=== PATIENT | female | born 1995 | race Caucasian/White ===

== ENCOUNTER → 2018-07-28 09:24 | Outpatient (CLI) | payer OTHER, SELFPAY ==
[2018-07-28 10:05] LABS: Absolute Neutrophil Count 5.3 X10^3/uL (2.0-7.7); Basophil# 0.04 X10^3/uL; Basophil% 0.5 % (0-1); Eosinophil# 0.17 X10^3/uL; Hematocrit 42.7 % (37-47); Hemoglobin 14.1 g/dl (12.0-15.0); Lymphocyte % 28.6 % (19-41); Mean Corpuscular Hgb 27.3 pg (27.0-32.0); Mean Corpuscular Volume 82.8 fL (81-99); Mean Platelet Vol. 9.4 fl (6.2-12.0); Monocyte# 0.53 X10^3/uL; Monocyte% 6.3 % (0-10); Neutrophil # 5.25 X10^3/uL (2.7-7.7); Neutrophil % 62.5 % (47-70); POSITIVE COUNT NO; POSITIVE DIFFERENTIAL NO; POSITIVE MORPHOLOGY NO; Platelet Count 360 K/mm3 (150-450); RBC Distribution Width CV 13.3 % (11.6-14.6); RBC Distribution Width SD 40.5 fl (35.1-43.9); Red Blood Count 5.16 M/mm3 (4.2-5.4); White Blood Count 8.4 K/mm3 (4.4-11.0)
[2018-07-28 10:46] LABS: Vitamin B12 1051 pg/mL (211-911)
[2018-07-28 10:48] LABS: ALB/GLOB Ratio 1.3 RATIO (0.9-2.4); AST(SGOT) 19 U/L (15-37); Alanine Aminotransfer ALT/SGPT 25 U/L (13-56); Albumin, Serum 4.2 g/dL (3.2-5.0); Alkaline Phosphatase 70 U/L (45-117); Anion Gap 7 (5-15); BUN 14 mg/dL (7-18); BUN/Creat Ratio 14.5 RATIO (10-20); Calcium,Total 8.9 mg/dL (8.5-10.1); Chloride 105 mmol/L (98-107); Cholesterol 195 mg/dL (200); Creatinine, Serum 0.97 mg/dL (0.55-1.02); EST Glomerular Filtration Rate 75 mL/min (>60); Est Glom Filt Rate - Afr Amer 90 mL/min (>60); Globulin 3.3 g/dL (2.2-4.2); Glucose 86 mg/dL (74-106); High Density Lipoprotein 58 mg/dL; Potassium 4.2 mmol/L (3.5-5.1); Protein, Total 7.5 g/dL (6.4-8.2); Sodium Level 140 mmol/L (136-145); Thyroid Stim Hormone (TSH) 1.98 uIU/mL (0.358-3.74); Triglycerides 125 mg/dL; Very Low Density Lipoprotein 25 mg/dL (5-40)
== END ==
PROVIDERS: Family Provider Family Medicine; PCP Family Medicine; Referring Provider Family Medicine; Visit Provider Family Medicine
DX: R51 Headache (principal); E53.8 Deficiency of other specified B group vitamins; Z68.34 Body mass index [BMI] 34.0-34.9, adult
CPT/HCPCS: 36415; 80053; 80061; 82607; 82746; 84443; 85025

== ENCOUNTER → 2018-12-24 12:03 | Outpatient (CLI) | payer OTHER, BC, SELFPAY ==
[2018-12-24 13:18] LABS: Vitamin B12 1853 pg/mL (211-911)
== END ==
PROVIDERS: Family Provider Family Medicine; PCP Family Medicine; Referring Provider Family Medicine; Visit Provider Family Medicine
DX: E53.8 Deficiency of other specified B group vitamins (principal)
CPT/HCPCS: 36415; 82607; 82746

== ENCOUNTER → 2019-03-17 06:41 | Outpatient (CLI) | payer OTHER, BC, SELFPAY ==
--- NOTE | 2019-03-17 06:42 | CT_ITS ---
STUDY: CT ABDOMEN AND PELVIS WITH AND WITHOUT CONTRAST REASON FOR EXAM: Female, 23 years old. Microhematuria. RADIATION DOSAGE (If Supplied By Facility): CTDIvol = ( 20.30 ) mGy, DLP = ( 3216.68 ) mGycm TECHNIQUE: Transaxial images were obtained from the dome of the diaphragm to the symphysis pubis without oral contrast. IV Isovue 370 100cc was administered. Sagittal and coronal images were reconstructed. Individualized dose optimization techniques were used for this CT. COMPARISON: None. FINDINGS: The visualized lung bases are unremarkable. The visualized portions of the heart are within normal limits. Normal liver. Normal gallbladder and extrahepatic biliary system. Normal spleen. Normal pancreas. Normal bilateral adrenal glands. Normal right kidney. Normal left kidney. Normal visualized stomach. Normal small intestine. Moderate fecal debris within the colon noted. There is non-visualization of the appendix. Normal abdominal aorta. Normal inferior vena cava. Normal retroperitoneum. Normal urinary bladder. The uterus is anteverted. The remainder of the pelvis structures are normal. There is a right-sided collapsing corpus luteum cyst measuring 1.4 cm. There is trace amount of fluid surrounding the right adnexa. Normal abdominal wall. Normal osseous structures. CT/CT Abd/Pelvis W/WO Contrast IMPRESSION: No intrarenal stone, mass or hydronephrosis. No bladder calculus or bladder mass visualized. Moderate to abundant fecal debris which may indicate mild constipation, clinical correlation recommended. No bowel obstruction. Electronically Signed: Jaylene Alvarado MD at 7:58 EST , Service support ,
== END ==
PROVIDERS: Family Provider Family Medicine; PCP Family Medicine; Referring Provider Urology; Visit Provider Urology
DX: R31.9 Hematuria, unspecified (principal)
CPT/HCPCS: 74178; Q9967

== ENCOUNTER → 2019-09-09 15:55 | Outpatient (CLI) | payer OTHER, SELFPAY ==
[2019-06-10 12:30] VITALS: BMI 33.7
[2019-09-09 17:42] LABS: Vitamin B12 645 pg/mL (211-911)
== END ==
PROVIDERS: PCP Family Medicine; Referring Provider Family Medicine; Visit Provider Family Medicine
DX: G43.909 Migraine, unspecified, not intractable, without status migrainosus (principal); E53.8 Deficiency of other specified B group vitamins
CPT/HCPCS: 36415; 82607

== ENCOUNTER → 2020-02-06 | Outpatient (CLI) | payer OTHER, SELFPAY ==
[2020-02-06 14:15] VITALS: BMI 33.7
[2020-02-06 17:54] LABS: Amphetamine Urine VISTA NEGATIVE (<1000 ng/mL); Barbiturate Urine VISTA NEGATIVE (< 200 ng/mL); Benzodiazepine Urine VISTA NEGATIVE (< 200 ng/mL); Cocaine Urine VISTA NEGATIVE (< 300 ng/mL); Ecstacy Urine VISTA NEGATIVE (< 500 ng/mL); Methadone Urine VISTA NEGATIVE (< 300 ng/mL); PCP Urine VISTA NEGATIVE (< 25 ng/mL); THC Urine VISTA NEGATIVE (< 50 ng/mL); Vista UDS pH Range 6
[2020-02-10 03:08] LABS: Chlamydia By Nucleic Acid AMP Negative (Negative)
[2020-02-10 04:55] LABS: Gonococcus By Nucleic Acid AMP Negative (Negative)
[2020-02-10 20:36] LABS: HPV Reflexed? YES, CHARGE PATIENT
== END | disposition home or self-care (01) ==
LOC: LABSPEC 16:50
PROVIDERS: PCP Family Medicine; Referring Provider Obstetrics & Gynecology; Visit Provider Obstetrics & Gynecology
DX: Z34.90 Encounter for supervision of normal pregnancy, unspecified, unspecified trimester (principal)
CPT/HCPCS: 80307; 87086; 87088; 87491; 87591; 87624; 88175; G0145

== ENCOUNTER → 2020-02-07 10:39 | Outpatient (CLI) | payer OTHER, SELFPAY ==
[2020-02-06 14:15] VITALS: BMI 33.7
[2020-02-07 11:15] LABS: Absolute Lymphocyte Count 2.13 X10^3/uL (0.83-4.51); Basophil# 0.04 X10^3/uL; Basophil% 0.3 % (0-1); Eosinophils% 0.9 % (0-5); Hematocrit 38.5 % (37-47); Hemoglobin 12.7 g/dL (12.0-15.0); Lymphocyte # 2.13 X10^3/ul (4.0); Lymphocyte % 18.1 % (19-41); Mean Corpuscular Hgb 27.3 pg (27.0-32.0); Mean Corpuscular Volume 82.6 fL (81-99); Mean Platelet Vol. 9.3 fl (6.2-12.0); Monocyte# 0.45 X10^3/uL; Monocyte% 3.8 % (0-10); NRBC Flagged by Analyzer 0 % (0-5); Neutrophil # 8.98 X10^3/uL (2.7-7.7); Neutrophil % 76.6 % (47-70); Platelet Count 368 K/mm3 (150-450); RBC Distribution Width CV 13.4 % (11.6-14.6); RBC Distribution Width SD 39.8 fl (35.1-43.9); Red Blood Count 4.66 M/mm3 (4.2-5.4); White Blood Count 11.7 K/mm3 (4.4-11.0)
[2020-02-07 11:37] LABS: Glucose Challenge Gest 1H 50g 107 mg/dL (70-140)
[2020-02-08 09:25] LABS: HIV - WCH Non-Reactive (Nonreactive); Hepatitis B Surface Antigen Non-Reactive (Nonreactive); Hepatitis C Antibody Non-Reactive (Nonreactive); Rubella IgG > 500.0 IU/mL
[2020-02-09 01:34] LABS: Rapid Plasmin Reagin (RPR) NONREACTIVE (NONREACTIVE)
== END ==
PROVIDERS: PCP Family Medicine; Referring Provider Obstetrics & Gynecology; Visit Provider Obstetrics & Gynecology
DX: Z34.90 Encounter for supervision of normal pregnancy, unspecified, unspecified trimester (principal)
CPT/HCPCS: 36415; 82950; 85025; 86592; 86703; 86762; 86803; 86850; 86900; 86901; 87340

== ENCOUNTER → 2020-03-06 | Outpatient (CLI) | payer OTHER, SELFPAY ==
[2020-03-06 15:16] VITALS: BMI 37.5
== END | disposition home or self-care (01) ==
LOC: LABSPEC 16:34
PROVIDERS: PCP Family Medicine; Visit Provider Obstetrics & Gynecology
DX: R30.0 Dysuria (principal)
CPT/HCPCS: 87086; 87088

== ENCOUNTER → 2020-03-12 15:21 | Outpatient (CLI) | payer OTHER, SELFPAY ==
[2020-03-06 15:16] VITALS: BMI 37.5
[2020-03-12 17:00] LABS: Vitamin B12 381 pg/mL (211-911)
== END ==
LOC: LAB.FUTURE 15:22 → LAB 03-13 07:54
PROVIDERS: PCP Family Medicine; Referring Provider Family Medicine; Visit Provider Family Medicine
DX: G43.909 Migraine, unspecified, not intractable, without status migrainosus (principal)
CPT/HCPCS: 36415; 82607

== ENCOUNTER → 2020-04-24 13:52 | Outpatient (CLI) | payer OTHER, SELFPAY ==
[2020-03-06 15:16] VITALS: BMI 37.5
[2020-04-16 15:15] VITALS: BMI 39.1
--- NOTE | 2020-04-24 13:54 | US_ITS ---
STUDY: SECOND AND THIRD TRIMESTER OBSTETRICAL ULTRASOUND REASON FOR EXAM: Female, 24 years old anatomy LMP: 12/03/2019. TECHNIQUE: Transabdominal TECHNICAL QUALITY: Adequate. PRIOR ULTRASOUND: None. FINDINGS: There is a single intrauterine fetus. The fetus is in a breech presentation. There is demonstrated cardiac activity with a heart rate of 148 bpm. There is a normal amniotic fluid volume. The largest amniotic fluid pocket measures 5 cm x 4.6 cm. The amniotic fluid index (ESTEFANY) is within normal limits. The placenta is anterior in location and is not low lying. There are Grade 1 placental changes. The cervix measures 4.1 cm in length. The adnexal regions are not visualized. BIOMETRY: BPD: 4.81 cm: 20 weeks, 3 days HC: 17.94 cm: 20 weeks, 2 days AC: 15.08 cm: 20 weeks, 2 days FL: 3.22 cm: 20 weeks, 2 days CI: 80% FL/BPD: 67% FL/HC: FL/AC: 21.4% HC/AC: 1.19 age by current US: 20 weeks, 1 days. PIO by current US: 09/10/2020. Estimated weight: 340 grams, +/- 50 grams, 33.5 %. Age by LMP: 20 weeks, 3 days. PIO by LMP: 09/08/2020. ANATOMY: Gender: Female Cranium: Normal lateral ventricles. Normal choroid plexus. Normal cerebellum. Normal cisterna magna. Normal face, nose and lips. Chest: Normal 4-chamber heart. Abdomen/Pelvis: Normal diaphragm. Normal stomach. Normal abdominal wall. Normal cord insertion. Normal 3 vessel cord. Normal kidneys. Normal bladder. Spine: The cervical spine is non-visualized. The thoracic spine is non-visualized. The lumbar spine is non-visualized. Normal sacrum. Extremities: Normal bilateral upper extremities. Normal bilateral lower extremities. US/OB Anatomy Scan IMPRESSION: Single live intrauterine gestation with a mean gestational age of 20 weeks and 1 day. Limited visualization of the cervical, thoracic and lumbar spine due to the position. Follow-up is recommended. Electronically Signed: Mohit Guerrero, at 8:37 EST , Service support ,
== END ==
PROVIDERS: PCP Family Medicine; Referring Provider Obstetrics & Gynecology; Visit Provider Obstetrics & Gynecology
DX: O09.92 Supervision of high risk pregnancy, unspecified, second trimester (principal); Z3A.20 20 weeks gestation of pregnancy
CPT/HCPCS: 76805

== ENCOUNTER → 2020-05-08 18:29 | Outpatient (CLI) | payer OTHER, SELFPAY ==
[2020-04-16 15:15] VITALS: BMI 39.1
[2020-05-07 15:18] VITALS: BMI 39.9
--- NOTE | 2020-05-08 18:30 | US_ITS ---
STUDY: SECOND AND THIRD TRIMESTER OBSTETRICAL ULTRASOUND - LIMITED REASON FOR EXAM: Female, 24 years old F/U ANATOMY SPINE VIEWS LMP: 12/03/2019. PRIOR ULTRASOUND: Comparison is made with prior study dated 04/24/2020. TECHNIQUE: Transabdominal TECHNICAL QUALITY: Adequate. FINDINGS: There is a single intrauterine fetus. The fetus is in a cephalic presentation. There is demonstrated cardiac activity with a heart rate of 171 bpm. There is a normal amniotic fluid volume. The largest amniotic fluid pocket measures 4.7 cm. The amniotic fluid index (ESTEFANY) is within normal limits. The placenta is anterior in location and is not low lying. There are Grade 1 placental changes. The cervix measures 4 cm in length. BIOMETRY: BPD: 5.3 cm: 22 weeks, 0 days HC: 20.7 cm: 22 weeks, 5 days AC: 18.4 cm: 23 weeks, 1 days FL: 3.9 cm: 22 weeks, 4 days Age by LMP: 22 weeks, 3 days. PIO by LMP: 09/08/2020. age by current US: 22 weeks, 4 days. PIO by current US: 09/07/2020. Estimated weight: 534 grams, +/- 80 grams, 60 percentile. Imaging of the spine was obtained. No abnormality is seen. US/OB Limited With Biometrics IMPRESSION: Single live intrauterine gestation with mean gestational age of 22 weeks and 4 days. Electronically Signed: Mohit Guerrero, at 9:32 EST , Service support ,
== END ==
PROVIDERS: PCP Family Medicine; Referring Provider Obstetrics & Gynecology; Visit Provider Obstetrics & Gynecology
DX: Z36.2 Encounter for other antenatal screening follow-up (principal); Z3A.22 22 weeks gestation of pregnancy
CPT/HCPCS: 76816

== ENCOUNTER → 2020-05-30 08:32 | Outpatient (CLI) | payer OTHER, SELFPAY ==
[2020-05-07 15:18] VITALS: BMI 39.9
[2020-05-30 09:20] LABS: Absolute Lymphocyte Count 1.81 X10^3/uL (0.83-4.51); Absolute Neutrophil Count 10.4 X10^3/uL (2.0-7.7); Basophil# 0.02 X10^3/uL; Basophil% 0.2 % (0-1); Eosinophil# 0.11 X10^3/uL; Eosinophils% 0.9 % (0-5); Hematocrit 34.3 % (37-47); Hemoglobin 10.8 g/dL (12.0-15.0); Lymphocyte # 1.81 X10^3/ul (4.0); Mean Corp Hgb Conc 31.5 g/dL (32-36); Mean Corpuscular Hgb 26.5 pg (27.0-32.0); Mean Corpuscular Volume 84.3 fL (81-99); Monocyte# 0.47 X10^3/uL; Monocyte% 3.6 % (0-10); NRBC Flagged by Analyzer 0 % (0-5); Neutrophil # 10.39 X10^3/uL (2.7-7.7); Neutrophil % 80.3 % (47-70); Platelet Count 318 K/mm3 (150-450); RBC Distribution Width CV 14.2 % (11.6-14.6); RBC Distribution Width SD 43.7 fl (35.1-43.9); Red Blood Count 4.07 M/mm3 (4.2-5.4); White Blood Count 12.9 K/mm3 (4.4-11.0)
[2020-05-30 09:42] LABS: Glucose Challenge Gest 1H 50g 119 mg/dL (70-140)
== END ==
PROVIDERS: Obstetrics & Gynecology; PCP Family Medicine; Referring Provider Obstetrics & Gynecology; Visit Provider Obstetrics & Gynecology
DX: O09.90 Supervision of high risk pregnancy, unspecified, unspecified trimester (principal); Z13.1 Encounter for screening for diabetes mellitus
CPT/HCPCS: 36415; 82950; 85025

== ENCOUNTER → 2020-06-08 14:54 | Outpatient (CLI) | payer OTHER, SELFPAY ==
[2020-06-01 10:14] VITALS: BMI 40.5
--- NOTE | 2020-06-08 | LES_PTH ---
PATIENT: RAMIN PATEL LOC: [facility] U#:[id number] AGE/SX: 29/F ROOM: RE06/08/[address]: Dr. Starr Longo MD : 1995 BED: DIS: SPEC #: [id number] RECD: 06/08/20 14:51 STATUS: RAMONA ELIEL #: [id number] TEVIN: 06/08/20 00:[address]: Starr Longo DEPT: SURGICAL PATHOLOGY RECD BY: Maria Eugenia Tavares Tissues: Skin of leg, NOS Procedures: Surgery Specimen Level IV HEADER OPERATION: Punch biopsy PRE-OP DIAGNOSIS: , changing mole TISSUE SUBMITTED: 3 mm punch posterior left leg MICROSCOPIC DIAGNOSIS Posterior left leg, punch biopsy: Intradermal nevus. See comment. SUKH:mary 06/12/2020 COMMENT Clinical correlation and appropriate follow up are necessary. Case has been reviewed in consultation with Dr. Pelayo who concurs with the above diagnosis. IDC:AM MICROSCOPIC DESCRIPTION Slides are reviewed. GROSS DESCRIPTION Received in fixative is one container labeled with the patient's name and designated left posterior leg. The specimen consists of a punch biopsy of ontiveros-brown skin measuring 0.2 cm in diameter and 0.1 cm in length. The entire specimen is submitted in one cassette. / SUKH:mary 06/11/20 TC:1 CPT: 30983
== END ==
PROVIDERS: PCP Family Medicine; Referring Provider Family Medicine; Visit Provider Family Medicine
DX: D22.72 Melanocytic nevi of left lower limb, including hip (principal)
CPT/HCPCS: 88305

== ENCOUNTER 2020-08-04 20:40 | Inpatient (IN) | payer OTHER, SELFPAY ==
[2020-08-02 15:21] VITALS: BMI 44.2
[2020-08-04 19:55] VITALS: BP 134/76; PULSE 96; TEMP 37.2; O2SAT 98
[2020-08-04 19:59] VITALS: BMI 44.1
[2020-08-04 20:34] LABS: ROM Internal Control Test YES-OK TO RESULT pt. (Internal QC)
[2020-08-04 20:36] LABS: ROM Patient Test POSITIVE (Negative)
[2020-08-04] MEDS: Lactated Ringers 1,000 ML 50 ML IV (21:20)
[2020-08-04 21:34] LABS: Absolute Lymphocyte Count 2.29 X10^3/uL (0.83-4.51); Basophil# 0.03 X10^3/uL; Basophil% 0.2 % (0-1); Eosinophil# 0.12 X10^3/uL; Eosinophils% 0.9 % (0-5); Hematocrit 35.3 % (37-47); Hemoglobin 11.7 g/dL (12.0-15.0); Lymphocyte # 2.29 X10^3/ul (4.0); Lymphocyte % 17.2 % (19-41); Mean Corp Hgb Conc 33.1 g/dL (32-36); Mean Corpuscular Hgb 28.1 pg (27.0-32.0); Mean Corpuscular Volume 84.7 fL (81-99); Mean Platelet Vol. 9.3 fl (6.2-12.0); Monocyte# 0.81 X10^3/uL; Monocyte% 6.1 % (0-10); NRBC Flagged by Analyzer 0 % (0-5); Neutrophil # 10.01 X10^3/uL (2.7-7.7); Neutrophil % 74.9 % (47-70); Platelet Count 281 K/mm3 (150-450); RBC Distribution Width CV 15.6 % (11.6-14.6); RBC Distribution Width SD 47.4 fl (35.1-43.9); Red Blood Count 4.17 M/mm3 (4.2-5.4); White Blood Count 13.4 K/mm3 (4.4-11.0)
[2020-08-04] MEDS: Betamethasone/Betamethasone 30 MG/5 ML Vial 12 MG IM (21:42)
[2020-08-04] MEDS: miSOPROStol 25 MCG TABLET PO (22:15)
[2020-08-04 22:36] VITALS: BP 131/68; PULSE 87; TEMP 37.4; O2SAT 98
--- NOTE | 2020-08-04 23:42 | PCM.HPOB.BLA ---
- Problem List (1) premature rupture of membranes (PPROM) delivered, current hospitalization Status: Acute (2) Anemia affecting Status: Acute Qualifiers: Comment: iron added. (3) Depression affecting Status: Acute Comment: celexa, encouraged counseling (4) History of tetanus, diphtheria, and acellular pertussis booster vaccination (Tdap) Status: Acute Comment: 06/19/20 (5) Obesity affecting Status: Acute Qualifiers: Comment: encouraged healthy weight gain. 1 tm and 3rd tri glucola nl (6) Status: Acute Qualifiers: Comment: declines genetic, carrier and NTD; NL anatomy (7) Supervision of high risk , antepartum Status: Acute Comment: PRR PIO 09/08/20 Spouse: Cayden History and Physical Date of Admission: 08/04/20 Intake Vital Signs 08/02/20 Height 5 ft 4 in 08/02/20 Weight: 258 lb 08/02/20 BMI 44.2 08/02/20 BP 138/70 H Intake Visit Reasons: 34 WK OB Front End Technician Required: No Is patient in pain?: No Allergies nickel Allergy (Verified 08/02/20 15:21) Unknown Sulfa (Sulfonamide Antibiotics) Allergy (Verified 08/02/20 15:21) Unknown Medications multivitamin no.47-iron fum 27 mg-folate no.1 1 mg-dha 300 mg capsule cap PO 01/31/20 [History Confirmed 08/02/20] amitriptyline 25 mg tablet 25 mg PO DAILY 02/06/20 [History Confirmed 08/02/20] citalopram 20 mg tablet 20 mg PO DAILY 02/06/20 [History Confirmed 08/02/20] cyanocobalamin (vitamin B-12) 1,000 mcg capsule 1,000 mcg PO DAILY 02/06/20 [History Confirmed 08/02/20] magnesium oxide 400 mg PO DAILY 02/06/20 [History Confirmed 08/02/20] riboflavin (vitamin B2) 100 mg tablet 100 mg PO DAILY 02/06/20 [History Confirmed 08/02/20] Last Menstral Period: 12/03/19 Zika: Zika virus screening: Negative : No PFSH PFSH Medical History Headache (Acute) Surgical History No significant past surgical history (Acute) Family History Grandfather Heart disease Hypertension Grandfather Cancer Social History (Updated 08/02/20 @ 15:[address] 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 OB Visit PIO Calculator Estimated Delivery Date Method Current WG Current Estimate 09/08/20 LMP (Certain) 34w 5d Other Estimates 09/06/20 Ultrasound #1 35w 0d Expected Delivery Route/Plan Labor Preferences- CB/BF classes: done labor support person: Cayden labor intervention preferences: open to standard interventions pain management options preferred: wants to try to go natural but open to epidural cut cord/dad catch: cord, maybe delivery : yes PP control planned: OCPs discussed possible routes of delivery and associated risks: discussed possible delivery modalities and possible indications for each including R/B/A of , VAVD, FAVD, and CS. questions answered. special requests: [] Specific Issue/Plans flu vaccine: yes tdap vaccine: yes rhogam: na LARC form signed: yes Problem list reviewed and updated with the most current plan of care details and appropriate orders placed. Relevant counseling for the gestational age provided. Continue routine care and follow up unless otherwise noted in visit notes/problem list details Initial Weight: 215 lb Date EGA Weight BP Urine Prot Glucose FHR FuHt Pres Dilation Effaced St Visit Note 02/06/20 9w 2d 217 lb (+2 lb) 180 SM- CRL 2.5 cm cons with LMP 03/06/20 13w 3d 219 lb (+4 lb) 122/84 145 sm- NO VB CRAMPING 04/06/20 17w 6d 228 lb 6 oz (+13 lb 6 oz) 120/60 Negative Negative 145 GP - no cramping or bleeding. Anatomy scan ordered. 04/16/20 19w 2d 228 lb 2 oz (+13 lb 2 oz) 140/70 132/76 151 MH-Work in after CO2 exp at work. Feeling fine. Has had mild macdonald all day but lessening since out of office. Has not taken tylenol. No nausea or vision changes. Reviewed with SM and no further management at this time but if sx occur, to ED 05/07/20 22w 2d 233 lb (+18 lb) 122/60 Negative Negative 160 GP - no LOF, VB, ctx. Has not yet felt FM. US performed and placenta noted to be anterior. 06/01/20 25w 6d 236 lb 4 oz (+21 lb 4 oz) 136/78 Negative Negative 145 25 GP - no LOF, VB, DFM, ctx. Anatomy scan nl. GCT nl. Anemic - discussed iron supplementation. 06/19/20 28w 3d 245 lb 6 oz (+30 lb 6 oz) 130/64 Negative Negative 142 28 MH-NO Vb, LOF. Good FM. Tdap, larc. Taking Fe for anemia. 07/06/20 30w 6d 247 lb 6 oz (+32 lb 6 oz) 130/76 Negative Negative 140 30 GP - no LOF, VB, DFM, ctx. Denies complaints. 07/20/20 32w 6d 250 lb 4 oz (+35 lb 4 oz) 110/60 Negative Negative 155 33 GP - no LOF, VB, DFM, ctx. Discussed labor preferences and routes of delivery. 08/02/20 34w 5d 258 lb (+43 lb) 138/70 Negative Negative 155 36 GP -no ctx, LOF, VB, DFM. Measuring 2w ahead. Growth scheduled for next visit. ACOG First Trimester First Trimester: Desire for , Alcohol, Tobacco Cessation, Illicit/Recreational Drug/Substance Use, Intimate Partner Violence, Barriers to care, Unstable Housing, Communication Barriers, Environmental/Work Hazards, Anticipated Course of Care, Toxoplasmosis Precations, Use of Any medications, Sexual activity, Exercise, Dental Care, Sauna/Hot tub use, Seat Belt use, Childbirth classes/Hospital facilities, , Travel, Indications for US and Screening for Aneuploidy Second Trimester Second Trimester: Signs and Symptoms of Labor, Selecting a care provider, Reproductive Life Planning, Care Planning, Depression/Anxiety and Intimate Partner Violence; discussed Tobacco Cessation Diagnostics Diagnostics Diagnostics Glucose 1 Hr 50 gm 119 mg/dL (70-140) 05/30/20 Hgb 10.8 g/dL (12.0-15.0) L 05/30/20 Hct 34.3 % (37-47) L 05/30/20 Details: HIV: Urine Culture: Sequential Screen: NIPT Screen: ROS ROS Const Reports system reviewed and no additional complaints, except as documented Card Reports system reviewed and no additional complaints, except as documented Resp Reports system reviewed and no additional complaints, except as documented GI Reports system reviewed and no additional complaints, except as documented, Reports nausea Reports system reviewed and no additional complaints, except as documented Musc Reports system reviewed and no additional complaints, except as documented all other systems reviewed and negative Exam Const General: cooperative, healthy appearing, comfortable, no acute distress, well developed, well groomed Nutritional Appearance: average body habitus, well nourished Orientation: alert, awake, oriented x3 HENMT Head: normal to inspection, normocephalic, atraumatic Eyes Pupils: PERRL, accommodation normal Resp Effort & Inspection: normal respiratory effort, able to speak in complete sentences, symmetric chest movement Cardio Rate: regular rate GI Palpation: soft, no guarding, no masses, nontender Skin General: no rashes or lesions noted, elasticity normal, turgor normal Neuro General: alert, awake, oriented x3 Cranial Nerves: CN's II-XI intact bilaterally, sense of smell intact, PERRL, accommodation normal, EOM intact bilaterally Speech: speech normal Gait: normal gait Psych Appearance: grossly normal, well kempt Mental Status: mental status grossly normal Mood: congruent mood Affect: normal affect Speech and Movement: speech and movement normal Attitude: cooperative Thought Process: normal Thought Content: normal Judgment: judgment good Results POC Urinalysis 2 Dip (Clinic) Office Urine Glucose Negative Last Edit by Starr Chang on 08/02/20 15:39 Office Urine Protein Negative Last Edit by Starr Chang on 08/02/20 15:39 Assessment & Plan Problems 1. History of tetanus, diphtheria, and acellular pertussis booster vaccination (Tdap) Z92.29 06/19/20 2. Anemia affecting in third trimester O99.013 iron added. 3. Obesity affecting in third trimester O99.213 encouraged healthy weight gain. 1 tm and 3rd tri glucola nl 4. Supervision of high risk , antepartum O09.90 PRR PIO 09/08/20 Spouse: Cayden 5. Depression affecting O99.340; F32.9 celexa, encouraged counseling 6. 34 weeks gestation of Z3A.34 declines genetic, carrier and NTD; NL anatomy PPROM at 35w - BMZ ordered x2 - GBS unknown - PCN ordered, GBS collected - Not kong - plan augmentation with cytotec/pitocin - Pain - desires natural as long as possible, but open to epidural UPDATE- I have seen the patient and performed any clinically relevant updates to the history and physical exam. Jessica Moore MD
[2020-08-05] VITALS (63 sets, daily range): BP systolic 99–144; BP diastolic 54–79; PULSE 68–109; RESP 16; TEMP 36.5–37.9; O2SAT 91–100
[2020-08-05 00:03] LABS: Group B Strep DNA By PCR Negative (Negative); Internal Control PASS; Probe Check PASS; Specimen Processing Control PASS
[2020-08-05] MEDS: miSOPROStol 50 MCG TABLET PO (02:13)
--- NOTE | 2020-08-05 08:44 | PCM.PN.BLA ---
Progress Note patient doing well- plan pitocin per protocol. amp and azithro for PPROM, epi PRN. STROKE Vital Signs/Narrative: Vital Signs Temp Pulse BP Pulse Ox 08/05/20 07:32 98.4 F 99 08/05/20 07:30 76 131/75 H 08/05/20 06:15 97.9 F 73 124/65 H 98
[2020-08-05] MEDS: Oxytocin 30 units/NS 500 ml 30 UNITS/500 ML IV.SOLN IV (10:00)
[2020-08-05] MEDS: Ondansetron 4 MG/2 ML Vial IV (10:07)
[2020-08-05] MEDS: 0.9% Saline Lock 10 ML Syringe IV ×2 (10:08→18:01)
[2020-08-05] MEDS: Lactated Ringers 500 ML 999 ML IV (10:37)
[2020-08-05] MEDS: fentaNYL-bupivacaine (epidural) 100 ML BAG EPIDURAL (11:33)
[2020-08-05] MEDS: Lactated Ringers 1,000 ML 200 ML IV (12:45)
[2020-08-05] MEDS: Oxytocin 30 units/NS 500 ml 30 UNITS/500 ML IV.SOLN 334 UNITS IV (14:48)
--- NOTE | 2020-08-05 15:01 | OP.PCM_ITS ---
Problem List (1) premature rupture of membranes (PPROM) delivered, current hospitalization Status: Acute (2) History of tetanus, diphtheria, and acellular pertussis booster vaccination (Tdap) Status: Acute Comment: 06/19/20 (3) Anemia affecting Status: Acute Qualifiers: Comment: iron added. (4) Obesity affecting Status: Acute Qualifiers: Comment: encouraged healthy weight gain. 1 tm and 3rd tri glucola nl (5) Supervision of high risk , antepartum Status: Acute Comment: PRR PIO 09/08/20 Spouse: Cayden (6) Depression affecting Status: Acute Comment: celexa, encouraged counseling (7) Status: Acute Qualifiers: Comment: declines genetic, carrier and NTD; NL anatomy Vaginal Delivery Maternal Presentation: Spontaneous Rupture of Membranes iol PPROM 35 weeks Method of Induction: Pitocin, Cytotec Medical Reason for Induction: Premature Rupture of Membranes Amniotic Fluid Description: Clear Final PIO: 09/08/20 Gestational age: 35 Weeks and 1 Days Date of Procedure: 08/05/20 Pre-Operative Diagnosis: iol pprom Post-Operative Diagnosis: same Surgery/ Procedure Performed: Spontaneous Vaginal Delivery Type of Anesthesia: Epidural, Pudendal block with 1% lidocaine Description of Procedure: Patient began pushing and had inadequate anesthesia with epidural therefore a pudendal block was placed vaginally to assist with anesthesia. 10 cc of lidocaine was injected bilaterally 2 cm medial and posterior to the ischial spine and the sacrospinous ligament after prepping the vagina with Betadine. Patient resumed pushing and delivered the head in the PASQUALE presentation. The head was delivered atraumatically . The anterior and posterior shoulders delivered without complication followed by the rest of the and the was placed on the maternal abdomen. Delayed cord clamping was employed for approximately 60 seconds. Cord was clamped and cut and gentle traction was applied to the cord and the placenta delivered spontaneously immediately following it was noted to be intact with three-vessel cord. The perineum and vagina were inspected and to have a second-degree perineal laceration that was repaired in the usual fashion with 3-0 Vicryl Rapide. EBL was 200 cc. Patient and tolerated delivery well. Presentation: [place] Placental Delivery Description: Spontaneous Placenta Disposition: [facility] Cord Vessel Description: 3 Vessels Nuchal Cord Compression: Without compression Cord Entanglement: None Estimated Blood Loss: 200 A gender: Female Episiotomy Description: None Laceration: Perineal Extension/lac, 2nd degree Medications given after delivery: IV Pitocin Complications: None Multi Select Codes - Urinary/Genital Urinary/Genital CPT Codes: 84602 Vaginal Delivery [facility]
--- NOTE | 2020-08-05 15:06 | DCINST_ITS ---
<Jonathan Grubbson - Last Filed: 08/05/20 15:06> Discharge Diet: No Restrictions Discharge Activity: Return to Normal Activity, May not drive while taking narcotic pain medications., May Shower May resume sexual activity in: 4-6 weeks Call your doctor if your incision/area has: Continuous Slow Oozing, Sudden Increased Bleeding, Increased Pain/ Swelling, Increased Redness, Foul Smelling Discharge Additional Instructions: If you experience any of the following, contact your healthcare provider. * Bleeding that soaks a pad every hour for 2 hours * Fever 100.4 or higher * Unrelieved incision or abdominal pain * Swelling, redness, discharge or bleeding from your incision or episiotomy site * Your incision begins to separate * Problems urinating (including inability to urinate or burning while urinating). * Visual changes * Severe headache * Flu-like symptoms * Pain or redness in one of both of your breasts * Pain, warmth, tenderness or swelling in your legs, especially the calf area * Frequent nausea and vomiting * Symptoms of depression or anxiety If you experience any of the following, call 911 or go to the nearest Emergency Room. * Chest pain * Problems breathing * Seizure activity * Partial or complete paralysis of a body part, slurred speech, weakness or drooping of the face, or a sudden inability to walk or hold your balance Allergies/Adverse Reactions: Allergies nickel Allergy (Verified 08/04/20 19:51) Unknown Sulfa (Sulfonamide Antibiotics) Allergy (Verified 08/04/20 19:51) Unknown Medications to take at Discharge multivitamin no.47-iron fum 27 mg-folate no.1 1 mg-dha 300 mg capsule 1 cap PO DAILY 01/31/20 amitriptyline 25 mg tablet 25 mg PO DAILY 02/06/20 citalopram 20 mg tablet 20 mg PO DAILY 02/06/20 cyanocobalamin (vitamin B-12) 1,000 mcg capsule 1,000 mcg PO DAILY 02/06/20 magnesium oxide 400 mg PO DAILY 02/06/20 riboflavin (vitamin B2) 100 mg tablet 100 mg PO QWEEK 02/06/20 Ferrous Sulfate [Iron] 325 mg PO BID 08/04/20 Naproxen [Naprosyn] 250 - 500 mg PO Q8H PRN PRN #30 tab 08/05/20 The following prescriptions were given: Naproxen [Naprosyn] 250 - 500 mg PO Q8H PRN PRN #30 tab PRN Reason: MILD PAIN Transmission Status: Received by [facility] Please Follow Up With: Evelyn Grubbs MD - [phone] When: Call to make an appointment with your doctor in 6 weeks. If you had elevated Blood pressure or 4th degree laceration you will need to be seen in 2 weeks. Primary Care Physician: Starr Longo MD [Primary Care Provider] - Test Results: Test results from this visit will be discussed in further detail at your follow- up appointment, if applicable. <Nayely Jaquez INSURANCE ATTORNEY - Last Filed: 08/07/20 07:38> Additional Instructions: If you experience any of the following, contact your healthcare provider. * Bleeding that soaks a pad every hour for 2 hours * Fever 100.4 or higher * Unrelieved incision or abdominal pain * Swelling, redness, discharge or bleeding from your incision or episiotomy site * Your incision begins to separate * Problems urinating (including inability to urinate or burning while urinating). * Visual changes * Severe headache * Flu-like symptoms * Pain or redness in one of both of your breasts * Pain, warmth, tenderness or swelling in your legs, especially the calf area * Frequent nausea and vomiting * Symptoms of depression or anxiety If you experience any of the following, call 911 or go to the nearest Emergency Room. * Chest pain * Problems breathing * Seizure activity * Partial or complete paralysis of a body part, slurred speech, weakness or drooping of the face, or a sudden inability to walk or hold your balance Test Results: Test results from this visit will be discussed in further detail at your follow- up appointment, if applicable.
--- NOTE | 2020-08-05 15:39 | PLAC_PTH ---
PATIENT: RAMIN PATEL LOC: [facility] U#:[id number] AGE/SX: 24/F ROOM: [facility] RE08/04/[address]: Dr. Jessica Moore MD : 1995 BED: 1 DIS: 08/07/2020 SPEC #: [id number] RECD: 08/05/20 16:51 STATUS: RAMONA JULIAN #: [id number] TEVIN: 08/05/20 15:[address]: Jessica Moore DEPT: SURGICAL PATHOLOGY RECD BY: Maria Eugenia Tavares ENTERED: 08/06/20 08:27 SP TYPE: PLACENTA OTHR DR: Dr. Starr Longo MD Tissues: Placenta, NOS Procedures: Surgery Specimen Level V HEADER OPERATION: Vaginal delivery PRE-OP DIAGNOSIS: Rupture of membranes TISSUE SUBMITTED: Placenta MICROSCOPIC DIAGNOSIS Hopper placenta (492 gm): Umbilical cord - trivascular with no inflammation. Placental membranes - mild chronic decidual inflammation Placental disc - foci of organizing intraparenchymal hemorrhage, Alfie-Rodrigue change and mildly increased intraparenchymal fibrin plaques. AM:mary 08/08/2020 MICROSCOPIC DESCRIPTION Slides are reviewed. GROSS DESCRIPTION SPECIMEN: PLACENTA / CLINICAL INFORMATION: A. Weight: 2.695 kg B. Gestational Age: 35 weeks C. Sex: Female PLACENTAL WEIGHT (POST FIXATION): 492 gm PLACENTAL DIMENSIONS: 17 x 17 x 3 cm PLACENTAL SHAPE: Usual ovoid PLACENTAL WEIGHT FOR GESTATIONAL AGE: Within 10-99th percentile MEMBRANES - Present A. Insertion: Marginal B. Site of rupture from edge: 3.5 cm from edge of placental disc C. Color of membrane: Ontiveros-lowry D. Abnormalities: None UMBILICAL CORD - Present A. Color: Ontiveros-lowry B. Insertion: Central C. Length: 29 cm D. Diameter: 1.3 cm E. Number of vessels: Three F. Abnormalities: None PLACENTAL DISC - Present A. Color of surface: Ontiveros-lowry B. surface abnormalities: None C. Maternal cotyledons: Intact with minimal tears D. Attached retro placental clot: No clot E. Cut surface: Dark red and spongy F. Lesions: Sections reveal three ontiveros, indurated lesions each measuring 1 cm in greatest dimension. G. Separate clot: Absent SECTIONS SUBMITTED: 1. Membrane roll 2. Cord, maternal end 3. Cord, end 4. Placental disc, and maternal surfaces, lesion 5. Placental disc, and maternal surfaces, lesion 6. Placental disc, and maternal surfaces, lesion SJ:mary 08/07/20 TC:5 CPT: 88321
[2020-08-05] MEDS: Methylergonovine 0.2 MG/ML Ampul IM (16:07)
[2020-08-05] MEDS: Acetaminophen 500 MG Tablet 1000 MG PO (18:11)
[2020-08-06 00:35] VITALS: BP 104/51; PULSE 82; RESP 16; TEMP 37.1
--- NOTE | 2020-08-06 03:30 | NURSING ---
report given to xander PIPER. that RN to assume care of pt at this time.
[2020-08-06 03:37] VITALS: BP 126/73; PULSE 82; RESP 16; TEMP 36.4; O2SAT 98
--- NOTE | 2020-08-06 07:51 | NURSING ---
Carseat safety/education printed material given to patents in addition to informing parents of carseat safety education on tablet.
[2020-08-06 08:40] VITALS: BP 129/66; PULSE 95; RESP 16; TEMP 36.4
--- NOTE | 2020-08-06 09:00 | PCM.PN.OB ---
<Nayely Jaquez FISHER DIP NET - Last Filed: 08/07/20 07:39> Patient Problems: Active and Suspected Problems (Last Reviewed 08/02/20 @ 15:21 by Starr Chang) History of tetanus, diphtheria, and acellular pertussis booster vaccination (Tdap) (Acute) 06/19/20 Anemia affecting (Acute) iron added. Depression affecting (Acute) celexa, encouraged counseling - Physical Exam Vitals/I&O's: Vital Signs Temp Pulse Resp BP Pulse Ox 97.5 F L 67 16 113/57 L 98 08/07/20 02:45 08/07/20 02:45 08/07/20 02:45 08/07/20 02:45 08/07/20 02:45 Oxygen Delivery Method Room Air Weight: 257 lb 6.4 oz Body Mass Index (BMI) 44.1 Intake and Output for Last 24 Hours 08/05/20 08/06/20 08/07/20 23:59 23:59 23:59 Intake Total 4128.43 / 4128.43 Output Total 2450 / 2450 Balance 1678.43 / 1678.43 Microbiology Past 72 Hours 08/04/20 21:00 Mucosa - Nose SARS-CoV-2 Antigen (Rapid) - Final Current Medications Acetaminophen (Acetaminophen 500 Mg Tablet) 1,000 mg PO Q8H PRN PRN PRN Reason: Pain Score 1-3 Last Admin: 08/06/20 19:33 Dose: 1,000 mg Documented by: Amitriptyline HCl (Amitriptyline 25 Mg Tablet) 25 mg PO DAILY [facility] Last Admin: 08/06/20 09:37 Dose: 25 mg Documented by: Bisacodyl (Bisacodyl 10 Mg Suppository) 10 mg RC UD PRN PRN Reason: If no BM Citalopram Hydrobromide (Citalopram 20 Mg Tablet) 20 mg PO DAILY [facility] Last Admin: 08/06/20 09:37 Dose: 20 mg Documented by: Dibucaine (Dibucaine 30 Gm Tube) 1 applic TOPICAL TID PRN PRN; Protocol PRN Reason: Discomfort Hydrocortisone (Hydrocortisone 2.5% Crm) 1 applic TOPICAL TID PRN PRN; Protocol PRN Reason: Discomfort Methylergonovine Maleate (Methylergonovine 0.2 Mg/Ml Ampul) 0.2 mg IM X1 PRN PRN Reason: Excess bleeding/uterine atony Last Admin: 08/05/20 16:07 Dose: 0.2 mg Documented by: Naproxen (Naproxen 250 Mg Tablet) 500 mg PO Q8H PRN PRN PRN Reason: Pain Score 1-3 Ondansetron HCl (Ondansetron 4 Mg/2 Ml Vial) 4 mg IV Q4H PRN PRN PRN Reason: Nausea Oxycodone HCl (Oxycodone 5 Mg Tablet) 5 - 10 mg PO Q4H PRN PRN PRN Reason: Pain Score 4-10 Multivit/Folic Acid/Iron ( Vits Tablet) 1 tablet PO DAILY@1200 [facility] Last Admin: 08/06/20 09:37 Dose: 1 tablet Documented by: Senna/Docusate Sodium (Senna/Docusate Sodium 1 Tablet) 1 - 2 tablet PO DAILY PRN PRN PRN Reason: Constipation Simethicone (Simethicone 80 Mg Tablet) 80 mg PO PCHS PRN PRN Reason: Indigestion/Stomach pain Sodium Chloride (0.9% Saline Lock 10 Ml Syringe) 5 - 15 ml IV UD PRN PRN Reason: SALINE FLUSH Last Admin: 08/05/20 18:01 Dose: 10 ml Documented by: Assessment/Plan All Active Problems (Last Reviewed 08/02/20 @ 15:21 by Starr Chang) History of tetanus, diphtheria, and acellular pertussis booster vaccination (Tdap) (Acute) Anemia affecting (Acute) Depression affecting (Acute) Obesity affecting (Resolved) (Resolved) premature rupture of membranes (PPROM) delivered, current hospitalization (Resolved) Supervision of high risk , antepartum (Resolved) Sinusitis, acute (Resolved) Supervision of normal first (Resolved) <Evelyn Grubbs - Last Filed: 08/07/20 19:30> Subjective: Patient doing well without complaints. Tolerating PO. Ambulating and voiding without difficulty. feeding well. Denies chest pain, shortness of breath, calf pain/swelling, fevers, chills, lightheadedness. - Physical Exam Vitals/I&O's: Vital Signs Temp Pulse Resp BP Pulse Ox 97.6 F L 82 16 126/73 H 98 08/06/20 03:37 08/06/20 03:37 08/06/20 03:37 08/06/20 03:37 08/06/20 03:37 Oxygen Delivery Method Room Air Weight: 257 lb 6.4 oz Body Mass Index (BMI) 44.1 Intake and Output for Last 24 Hours 08/04/20 08/05/20 08/06/20 23:59 23:59 23:59 Intake Total 105 / 105 4128.43 / 4128.43 Output Total 2450 / 2450 Balance 105 / 105 1678.43 / 1678.43 General: Alert, Oriented x3 Microbiology Past 72 Hours 08/04/20 21:00 Mucosa - Nose SARS-CoV-2 Antigen (Rapid) - Final Current Medications Acetaminophen (Acetaminophen 500 Mg Tablet) 1,000 mg PO Q8H PRN PRN PRN Reason: Pain Score 1-3 Last Admin: 08/05/20 18:11 Dose: 1,000 mg Documented by: Amitriptyline HCl (Amitriptyline 25 Mg Tablet) 25 mg PO DAILY [facility] Bisacodyl (Bisacodyl 10 Mg Suppository) 10 mg RC UD PRN PRN Reason: If no BM Citalopram Hydrobromide (Citalopram 20 Mg Tablet) 20 mg PO DAILY [facility] Dibucaine (Dibucaine 30 Gm Tube) 1 applic TOPICAL TID PRN PRN; Protocol PRN Reason: Discomfort Hydrocortisone (Hydrocortisone 2.5% Crm) 1 applic TOPICAL TID PRN PRN; Protocol PRN Reason: Discomfort Methylergonovine Maleate (Methylergonovine 0.2 Mg/Ml Ampul) 0.2 mg IM X1 PRN PRN Reason: Excess bleeding/uterine atony Last Admin: 08/05/20 16:07 Dose: 0.2 mg Documented by: Naproxen (Naproxen 250 Mg Tablet) 500 mg PO Q8H PRN PRN PRN Reason: Pain Score 1-3 Ondansetron HCl (Ondansetron 4 Mg/2 Ml Vial) 4 mg IV Q4H PRN PRN PRN Reason: Nausea Oxycodone HCl (Oxycodone 5 Mg Tablet) 5 - 10 mg PO Q4H PRN PRN PRN Reason: Pain Score 4-10 Multivit/Folic Acid/Iron ( Vits Tablet) 1 tablet PO DAILY@1200 [facility] Senna/Docusate Sodium (Senna/Docusate Sodium 1 Tablet) 1 - 2 tablet PO DAILY PRN PRN PRN Reason: Constipation Simethicone (Simethicone 80 Mg Tablet) 80 mg PO PCHS PRN PRN Reason: Indigestion/Stomach pain Sodium Chloride (0.9% Saline Lock 10 Ml Syringe) 5 - 15 ml IV UD PRN PRN Reason: SALINE FLUSH Last Admin: 08/05/20 18:01 Dose: 10 ml Documented by: Medical Necessity - Tobacco Use Smoking Status: Never smoker Assessment/Plan s/p PPD # 1 1. routine post delivery care 2. breast feeding- support given 3. rh positive 4. rubella immune
[2020-08-06] MEDS: Prenatal Vits Tablet 1 TABLET PO (09:37)
[2020-08-06] MEDS: Citalopram 20 MG Tablet PO (09:37)
[2020-08-06] MEDS: Amitriptyline 25 MG Tablet PO ×2 (09:37)
--- NOTE | 2020-08-06 11:21 | CASEMGMT ---
Social Work Assessment Labor and Delivery Unit Date of Referral: 08/05/2020 Time of Referral: 17:32 Referred By: Dr. Evelyn Grubbs Date of Intervention: 08/06/2020 Time of Intervention: 11:21 Reason for Referral: Mother of baby (MOB) with diagnosis of Anxiety and Depression. MOB currently on Celexa and Amitriptyline History obtained from: MOB, Father of Baby (FOB), Chart, Nursing staff Household composition: MOB (Rosette Bañuelos) and FOB (Cayden Bañuelos) have private home with plan for this , Sandra Bañuelos to also live under this residence. Patient's parent/guardian status: MOB and FOB are and have been together for 2 years. was planned, ?we tried for a few months.? MOB reports to feel safe with FOB per chart review. This is first child for both MOB and FOB. Medical History: MOB with history prior to delivery. MOB with vaginal delivery at 35weeks gestational age on 08/05/20. MOB with history of Depression and Anxiety per chart review. MOB denies having any formal mental health diagnosis. MOB plans to breastfeed . Infant with apgars of 8 and 9 at 1min and 5min of life. Infant to follow with Dr. Sellers in the community. Educational Status: MOB denies any issues with comprehension or understanding. Financial Status: MOB and FOB deny any financial concerns. Both MOB and FOB work full-time. Supplies: MOB was to have baby shower this past weekend and does not currently have all supplies such as a car seat, BUT MOB?s parents are coming with car seat prior to discharge. MOB reports to have all essentials such a diapers, crib etc. MOB reports plan to go to [facility] where MOB and FOB are from to have baby shower this coming weekend. to stay with FOB during shower ?as there are germs? per MOB. Childcare/Caregiver(s): MOB plans to be primary caregiver for until returning to work. MOB plans to utilize a daycare for childcare ones MOB returns to work. Transportation: MOB denies any issues with transportation. Programs/Agencies Involved: MOB with no active community/agency involvement and denies need for referrals. Children Services/Legal Issues: No history of children services or current legal issues. Mental Health History: MOB with history of Depression and Anxiety per chart review. MOB reports to believe that MOB does not have Depression but ?maybe? Anxiety. MOB reports to primarily be on ?those meds? to manage headaches. This healthcare social worker having discussion with MOB on signs and symptoms of Depression and Anxiety after discussion, MOB agrees to have ?some Anxiety? and that medication does help with this. This healthcare social worker also able to facilitate conversation with MOB about depression/anxiety signs and symptoms. MOB?s PCP, Dr. Gtz prescribes Celexa and Amitriptyline. MOB denies any suicidal thoughts or history of. MOB denies any history of counseling services. Substance Use History: MOB denies any substance abuse/use. No smoking in the home. Maternal and Drug Screens: MOB with negative tox screen on 02/05/2021. No tox screen obtained for infant or MOB on admission to labor and delivery. PHQ9: Did not trigger. Family/Social Stressors: MOB denies any family stressors outside of adjusting to life with a . MOB with appropriate questions and concerns to transitioning to a family of three. Support Systems: MOB reports to have positive support from FOB and extended families. Depression and Anxiety/Shaken Baby/Safe Sleeping: MOB provided with resources on depression/anxiety, shaken baby, safe sleeping and [facility] general resource list. MOB and FOB responding appropriately to safe sleeping and shaken baby prompts. ASSESSMENT: This healthcare social worker met with MOB and FOB in room. Introduced self and healthcare social worker role. MOB agreeable to speak with this healthcare social worker and provided verbal permission for this healthcare social worker to speak openly with FOB present. MOB and FOB both report to have a connection to . MOB infant throughout assessment. MOB and FOB with appropriate and engaged affects. MOB gazing often towards and able to manage and speaking with this healthcare social worker. MOB and FOB deny any concerns on returning to home. PLAN: Infant to discharge to home with MOB and FOB. No other services requested or indicated. Oseas GRIER,AAYUSH
[2020-08-06 12:00] VITALS: BP 119/62; PULSE 78; RESP 16; TEMP 36.4
[2020-08-06 17:20] VITALS: BP 125/73; PULSE 89; RESP 16; TEMP 36.7
[2020-08-06] MEDS: Acetaminophen 500 MG Tablet 1000 MG PO (19:33)
[2020-08-06 19:34] VITALS: BP 121/69; PULSE 77; RESP 18; TEMP 36.6; O2SAT 97
--- NOTE | 2020-08-07 01:55 | NURSING ---
0030- This RN in room to assist pt. with . Education given about using the pedroza cup/syringe for supplementing with breastmilk and formula. Education also given about how to latch infant for feeds. FOB and pt. both verbalize that pt. is nervous and has a hard time repositioning infant for feeds. This RN explained the importance of proper head support and showed pt. how to bring around and to her side for football position. This RN also provided education about properly cleaning and drying the breast pump parts before/after feeds.
[2020-08-07 02:45] VITALS: BP 113/57; PULSE 67; RESP 16; TEMP 36.4; O2SAT 98
--- NOTE | 2020-08-07 07:36 | PN.OBGYN_ITS ---
Patient Problems: Active and Suspected Problems (Last Reviewed 08/02/20 @ 15:21 by Starr Chang) History of tetanus, diphtheria, and acellular pertussis booster vaccination (Tdap) (Acute) 06/19/20 Anemia affecting (Acute) iron added. Depression affecting (Acute) celexa, encouraged counseling Subjective: Patient doing well without complaints. Tolerating PO. Ambulating and voiding without difficulty. Breast feeding well. Denies chest pain, shortness of breath, calf pain/swelling, fevers, chills, lightheadedness. - Physical Exam Vitals/I&O's: Vital Signs Temp Pulse Resp BP Pulse Ox 97.5 F L 67 16 113/57 L 98 08/07/20 02:45 08/07/20 02:45 08/07/20 02:45 08/07/20 02:45 08/07/20 02:45 Oxygen Delivery Method Room Air Weight: 257 lb 6.4 oz Body Mass Index (BMI) 44.1 Intake and Output for Last 24 Hours 08/05/20 08/06/20 08/07/20 23:59 23:59 23:59 Intake Total 4128.43 / 4128.43 Output Total 2450 / 2450 Balance 1678.43 / 1678.43 General: Alert, Oriented x3 Abdomen: Soft, Non Tender, Non-Distended, - - FF below U Microbiology Past 72 Hours 08/04/20 21:00 Mucosa - Nose SARS-CoV-2 Antigen (Rapid) - Final Current Medications Acetaminophen (Acetaminophen 500 Mg Tablet) 1,000 mg PO Q8H PRN PRN PRN Reason: Pain Score 1-3 Last Admin: 08/06/20 19:33 Dose: 1,000 mg Documented by: Amitriptyline HCl (Amitriptyline 25 Mg Tablet) 25 mg PO DAILY [facility] Last Admin: 08/06/20 09:37 Dose: 25 mg Documented by: Bisacodyl (Bisacodyl 10 Mg Suppository) 10 mg RC UD PRN PRN Reason: If no BM Citalopram Hydrobromide (Citalopram 20 Mg Tablet) 20 mg PO DAILY [facility] Last Admin: 08/06/20 09:37 Dose: 20 mg Documented by: Dibucaine (Dibucaine 30 Gm Tube) 1 applic TOPICAL TID PRN PRN; Protocol PRN Reason: Discomfort Hydrocortisone (Hydrocortisone 2.5% Crm) 1 applic TOPICAL TID PRN PRN; Protocol PRN Reason: Discomfort Methylergonovine Maleate (Methylergonovine 0.2 Mg/Ml Ampul) 0.2 mg IM X1 PRN PRN Reason: Excess bleeding/uterine atony Last Admin: 08/05/20 16:07 Dose: 0.2 mg Documented by: Naproxen (Naproxen 250 Mg Tablet) 500 mg PO Q8H PRN PRN PRN Reason: Pain Score 1-3 Ondansetron HCl (Ondansetron 4 Mg/2 Ml Vial) 4 mg IV Q4H PRN PRN PRN Reason: Nausea Oxycodone HCl (Oxycodone 5 Mg Tablet) 5 - 10 mg PO Q4H PRN PRN PRN Reason: Pain Score 4-10 Multivit/Folic Acid/Iron ( Vits Tablet) 1 tablet PO DAILY@1200 [facility] Last Admin: 08/06/20 09:37 Dose: 1 tablet Documented by: Senna/Docusate Sodium (Senna/Docusate Sodium 1 Tablet) 1 - 2 tablet PO DAILY PRN PRN PRN Reason: Constipation Simethicone (Simethicone 80 Mg Tablet) 80 mg PO PCHS PRN PRN Reason: Indigestion/Stomach pain Sodium Chloride (0.9% Saline Lock 10 Ml Syringe) 5 - 15 ml IV UD PRN PRN Reason: SALINE FLUSH Last Admin: 08/05/20 18:01 Dose: 10 ml Documented by: Medical Necessity - Tobacco Use Smoking Status: Never smoker Assessment/Plan All Active Problems (Last Reviewed 08/02/20 @ 15:21 by Starr Chang) History of tetanus, diphtheria, and acellular pertussis booster vaccination (Tdap) (Acute) Anemia affecting (Acute) Depression affecting (Acute) Obesity affecting (Resolved) (Resolved) premature rupture of membranes (PPROM) delivered, current hospita lization (Resolved) Supervision of high risk , antepartum (Resolved) Sinusitis, acute (Resolved) Supervision of normal first (Resolved) s/p PPD # 2 1. routine post delivery care 2. breast feeding- support given 3. rh positive 4. rubella immune 5. Enc stool softener 6. Hotel status due to PPROM and baby needs further monitoring
[2020-08-07 08:09] VITALS: BP 113/67; PULSE 75; RESP 16; TEMP 36.5; O2SAT 96
[2020-08-07] MEDS: Citalopram 20 MG Tablet PO (09:54)
[2020-08-07] MEDS: Prenatal Vits Tablet 1 TABLET PO (09:55)
[2020-08-07] MEDS: Amitriptyline 25 MG Tablet PO (09:55)
[2020-08-07 13:16] VITALS: BP 118/64; PULSE 88; RESP 18; TEMP 36.6; O2SAT 98
[2020-08-08 14:49] LABS: Pathology Specimen OB SEE PATHOLOGY REPORT
--- NOTE | 2020-08-09 09:42 | PCM.DC.SUM ---
Discharge Date and Diagnosis - Problem List Patient Problems: Active and Suspected Problems (Last Reviewed 08/02/20 @ 15:21 by Starr Chang) History of tetanus, diphtheria, and acellular pertussis booster vaccination (Tdap) (Acute) 06/19/20 Anemia affecting (Acute) iron added. Depression affecting (Acute) celexa, encouraged counseling Date of Admission: 08/04/20 - Primary Discharge Diagnosis Acute Problems: Active Problems (Last Reviewed 08/02/20 @ 15:21 by Starr Chang) History of tetanus, diphtheria, and acellular pertussis booster vaccination (Tdap) (Acute) 06/19/20 Anemia affecting (Acute) iron added. Depression affecting (Acute) celexa, encouraged counseling Hospital Course and Treatment Consultations 08/04/20 20:55 Consult: Anesthesia Routine Comment: Reason For Exam: Labor Operations: - - Summary of Care Provided: The patient is a 24 year old F after PPROM. Normal routine pp care. Discharge to home with no restrictions. Patient Problems: Active and Suspected Problems (Last Reviewed 08/02/20 @ 15:21 by Starr Chang) History of tetanus, diphtheria, and acellular pertussis booster vaccination (Tdap) (Acute) 06/19/20 Anemia affecting (Acute) iron added. Depression affecting (Acute) celexa, encouraged counseling - Physical Exam Vitals/I&O's: Vital Signs Temp Pulse Resp BP Pulse Ox 97.9 F 88 18 118/64 98 08/07/20 13:16 08/07/20 13:16 08/07/20 13:16 08/07/20 13:16 08/07/20 13:16 Oxygen Delivery Method Room Air Weight: 257 lb 6.4 oz Body Mass Index (BMI) 44.1 Microbiology Past 72 Hours 08/05/20 Unknown Genital vaginal Group B Streptococcus Culture - Final Group B Beta Streptococcus is not isolated. Discharge Diet: No Restrictions Discharge Activity: Return to Normal Activity, May not drive while taking narcotic pain medications., May Shower May resume sexual activity in: 4-6 weeks Call your doctor if your incision/area has: Continuous Slow Oozing, Sudden Increased Bleeding, Increased Pain/ Swelling, Increased Redness, Foul Smelling Discharge Home Medications: Medications to take at Discharge multivitamin no.47-iron fum 27 mg-folate no.1 1 mg-dha 300 mg capsule 1 cap PO DAILY 01/31/20 amitriptyline 25 mg tablet 25 mg PO DAILY 02/06/20 citalopram 20 mg tablet 20 mg PO DAILY 02/06/20 cyanocobalamin (vitamin B-12) 1,000 mcg capsule 1,000 mcg PO DAILY 02/06/20 magnesium oxide 400 mg PO DAILY 02/06/20 riboflavin (vitamin B2) 100 mg tablet 100 mg PO QWEEK 02/06/20 Ferrous Sulfate [Iron] 325 mg PO BID 08/04/20 Naproxen [Naprosyn] 250 - 500 mg PO Q8H PRN PRN #30 tab 08/05/20 Following Prescriptions Were Given to Patient: Naproxen [Naprosyn] 250 - 500 mg PO Q8H PRN PRN #30 tab PRN Reason: MILD PAIN Transmission Status: Received by [facility] Primary Care Physician: Starr Longo MD [Primary Care Provider] - Please Follow Up With: Evelyn Grubbs MD - [phone] Medical Necessity - Tobacco Use Smoking Status: Never smoker Meaningful Use Info Meaningful Use Diagnoses (Choose all that apply): None applicable
== END 2020-08-07 13:16 | disposition home or self-care (01) | DRG 807 ==
LOC: WPOUT 20:43 → WP 20:43
PROVIDERS: Obstetrics & Gynecology; Admitting Provider Obstetrics & Gynecology; PCP Family Medicine; Visit Provider Obstetrics & Gynecology
DX: O42.913 Preterm premature rupture of membranes, unspecified as to length of time between rupture and onset of labor, third trimester (principal); O70.1 Second degree perineal laceration during delivery; O69.81X0 Labor and delivery complicated by cord around neck, without compression, not applicable or unspecified; O99.02 Anemia complicating childbirth; D64.9 Anemia, unspecified; Z20.822 Contact with and (suspected) exposure to COVID-19; O99.344 Other mental disorders complicating childbirth; F32.9 Major depressive disorder, single episode, unspecified; O99.214 Obesity complicating childbirth; E66.9 Obesity, unspecified; Z79.899 Other long term (current) drug therapy; Z3A.35 35 weeks gestation of pregnancy; Z37.0 Single live birth
CPT/HCPCS: 59025; 59050; 84112; 85025; 86850; 86900; 86901; 87081; 87426; 87653; 88307; 99218; J7120; A4216; G0378; J0290; J0702; J2405

== ENCOUNTER → 2020-09-17 20:30 | Outpatient (CLI) | payer OTHER, SELFPAY | PROVIDERS: PCP Family Medicine; Referring Provider Obstetrics & Gynecology; Visit Provider Obstetrics & Gynecology | DX: Z39.1 Encounter for care and examination of lactating mother (principal) | CPT/HCPCS: 96158; 96159 ==

== ENCOUNTER → 2020-11-24 10:47 | Outpatient (CLI) | payer BC, SELFPAY ==
[2020-09-21 13:38] VITALS: BMI 44.1
[2020-11-24 11:34] LABS: Absolute Lymphocyte Count 2.86 X10^3/uL (0.83-4.51); Absolute Neutrophil Count 4.5 X10^3/uL (2.0-7.7); Basophil# 0.04 X10^3/uL; Basophil% 0.5 % (0-1); Eosinophil# 0.19 X10^3/uL; Eosinophils% 2.4 % (0-5); Hematocrit 40.8 % (37-47); Hemoglobin 13.6 g/dL (12.0-15.0); Lymphocyte # 2.86 X10^3/ul (0.83-4.51); Lymphocyte % 35.6 % (19-41); Mean Corp Hgb Conc 33.3 g/dL (32-36); Mean Corpuscular Hgb 28.1 pg (27.0-32.0); Mean Corpuscular Volume 84.3 fL (81-99); Mean Platelet Vol. 9.1 fl (6.2-12.0); Monocyte# 0.47 X10^3/uL; Monocyte% 5.9 % (0-10); NRBC Flagged by Analyzer 0 % (0-5); Neutrophil # 4.45 X10^3/uL (2.7-7.7); Neutrophil % 55.4 % (47-70); Platelet Count 372 K/mm3 (150-450); RBC Distribution Width CV 13.8 % (11.6-14.6); RBC Distribution Width SD 42.5 fl (35.1-43.9); Red Blood Count 4.84 M/mm3 (4.2-5.4)
[2020-11-24 12:08] LABS: Cholesterol 214 mg/dL (200); High Density Lipoprotein 52 mg/dL; Triglycerides 144 mg/dL; Very Low Density Lipoprotein 29 mg/dL (5-40)
[2020-11-26 10:21] LABS: Vitamin B12 1556 pg/mL (211-911)
== END ==
PROVIDERS: PCP Family Medicine; Visit Provider Family Medicine
DX: Z00.00 Encounter for general adult medical examination without abnormal findings (principal); O99.345 Other mental disorders complicating the puerperium; F53.0 Postpartum depression; D64.9 Anemia, unspecified
CPT/HCPCS: 36415; 80061; 82607; 85025